=== PATIENT | male | born 1990 | race African-American/Black ===

== ENCOUNTER 2016-09-30 23:57 | Emergency (ER) | payer MEDICAID, OTHER ==
[~2016-09-30] VITALS: Ht 172.7 cm; Wt 72.7 kg
[~2016-09-30 23:57] MED LIST: NOCURR
[2016-10-01 02:39] VITALS: BP 127/81
== END 2016-10-01 02:58 | disposition home or self-care (01) ==
LOC: EMS 23:58
DX: S30.812A Abrasion of penis, initial encounter (principal); L30.9 Dermatitis, unspecified; F17.210 Nicotine dependence, cigarettes, uncomplicated; X58.XXXA Exposure to other specified factors, initial encounter; Y93.89 Activity, other specified; Y92.89 Other specified places as the place of occurrence of the external cause; Y99.9 Unspecified external cause status
CPT/HCPCS: 99282; 99406

== ENCOUNTER 2017-03-17 06:14 | Emergency (ER) | payer MEDICAID ==
[~2017-03-17] VITALS: Ht 177.8 cm; Wt 81.8 kg
[~2017-03-17 06:14] MED LIST changes: +HIV MEDICATION PO; -NOCURR
[2017-03-17] MEDS ORDERED: SODIUM CHLORIDE 0.9% 1,000 ML IV ONE (08:00)
[2017-03-17] MEDS ORDERED: ONDANSETRON HCL 4 MG/2 ML VIAL IVP ONE ×2 (08:00→10:20)
[2017-03-17 08:03] LABS: BASOPHILS # (AUTO) 0.04 K/uL (0.00-0.20); BASOPHILS % (AUTO) 0.3 % (0.0-2.0); EOSINOPHILS # (AUTO) 0.01 K/uL (0.00-0.70); EOSINOPHILS % (AUTO) 0.09 % (1.0-6.0); HEMATOCRIT 50.4 % (41-53); HEMOGLOBIN 17.1 g/dL (13.5-17.5); LYMPHOCYTES # (AUTO) 0.6 K/uL (1.0-4.8); LYMPHOCYTES % (AUTO) 4.5 % (22.0-44.0); MEAN CORPUSCULAR HEMOGLOBIN 31.3 pg (26.0-34.0); MEAN CORPUSCULAR VOLUME 92 fL (80-100); MONOCYTES # (AUTO) 0.9 K/uL (0.1-1.0); MONOCYTES % (AUTO) 7.4 % (2.0-9.0); NEUTROPHILS # (AUTO) 11.1 K/uL (1.8-7.7); PLATELET COUNT (AUTO) 147 K/uL (150-450); RED BLOOD CELL COUNT(AUTO) 5.48 MIL/uL (4.50-5.90); RED CELL DISTRIBUTION WIDTH 13.4 % (11.5-14.5)
[2017-03-17 08:06] LABS: NEUTROPHILS % (AUTO) 87.7 % (40.0-70.0)
[2017-03-17 08:16] LABS: ANION GAP 8 mmol/L (8-16); CALCIUM, TOTAL 9.6 mg/dL (8.8-10.5); CARBON DIOXIDE 29 mmol/L (22-29); CHLORIDE 105 mmol/L (98-107); CREATININE 1.09 mg/dL (0.60-1.30); GLOMERULAR FILTR. RATE CALC > 60 mL/min (>60); GLUCOSE,RANDOM 106 mg/dL (70-110); POTASSIUM 3.6 mmol/L (3.5-5.1); SODIUM SERUM 142 mmol/L (136-145); UREA NITROGEN, BLOOD 17 mg/dL (7-18)
[2017-03-17 08:18] LABS: ALANINE AMINOTRANSFERASE 33 U/L (12-78); ALBUMIN 4.5 g/dL (3.4-5.0); ALKALINE PHOSPHATASE 50 U/L (46-116); ASPARTATE AMINOTRANSFERASE 18 U/L (15-37); BILIRUBIN,TOTAL 0.6 mg/dL (0.1-1.0); LIPASE 193 U/L (73-393); TOTAL PROTEIN, SERUM 8.6 g/dL (6.4-8.2)
[2017-03-17] MEDS ORDERED: IOVERSOL 350 MG/ML 100 ML VIAL ONE (10:12)
[2017-03-17] MEDS ORDERED: KETOROLAC TROMETHAMINE 30 MG/ML VIAL IVP ONE (10:15)
[2017-03-17 11:12] VITALS: BP 106/55
== END 2017-03-17 11:56 | disposition home or self-care (01) ==
LOC: EMS 06:15
DX: K52.9 Noninfective gastroenteritis and colitis, unspecified (principal); F17.210 Nicotine dependence, cigarettes, uncomplicated
CPT/HCPCS: 36415; 74177; 80053; 83690; 85025; 96361; 96374; 96375; 96376; 99285; J1885; J2405; J7030; Q9967

== ENCOUNTER 2017-05-11 13:04 | Inpatient (IN) | payer MEDICAID ==
[~2017-05-11] VITALS: Ht 172.7 cm; Wt 86.0 kg
[2017-05-11] MEDS ORDERED: EMTR1TAB15 PO (13:28)
[2017-05-11] MEDS ORDERED: DARU600T PO (13:29)
[2017-05-11] MEDS ORDERED: SODIUM CHLORIDE 0.9% 1,000 ML IV ONE ×4 (14:30→19:45)
[2017-05-11] MEDS ORDERED: ONDANSETRON HCL 4 MG/2 ML VIAL IVP ONE ×2 (14:30→17:45)
[2017-05-11] MEDS ORDERED: HYDROmorphone 2 MG/ML SYRINGE IVP ONE ×2 (14:45→17:45)
[2017-05-11] MEDS ORDERED: BARIUM SULFATE 0.1% SUSPENSION 450 ML BOTTLE PO ONE (15:20)
[2017-05-11 15:35] LABS: BASOPHILS % (AUTO) 0.1 % (0.0-2.0); EOSINOPHILS % (AUTO) 0 % (1.0-6.0); HEMOGLOBIN 16.6 g/dL (13.5-17.5); LYMPHOCYTES # (AUTO) 0.5 K/uL (1.0-4.8); LYMPHOCYTES % (AUTO) 2.5 % (22.0-44.0); MEAN CORPUSCULAR HGB CONC 34.6 G/dL (31.0-37.0); MEAN CORPUSCULAR VOLUME 90 fL (80-100); MONOCYTES # (AUTO) 1.2 K/uL (0.1-1.0); MONOCYTES % (AUTO) 5.7 % (2.0-9.0); NEUTROPHILS # (AUTO) 19.5 K/uL (1.8-7.7); PLATELET COUNT (AUTO) 186 K/uL (150-450); RED BLOOD CELL COUNT(AUTO) 5.36 MIL/uL (4.50-5.90); RED CELL DISTRIBUTION WIDTH 13.1 % (11.5-14.5)
[2017-05-11 15:38] LABS: NEUTROPHILS % (AUTO) 91.7 % (40.0-70.0)
[2017-05-11 15:59] LABS: ALANINE AMINOTRANSFERASE 28 U/L (12-78); ALBUMIN 4.3 g/dL (3.4-5.0); ALKALINE PHOSPHATASE 48 U/L (46-116); ANION GAP 15 mmol/L (8-16); ASPARTATE AMINOTRANSFERASE 16 U/L (15-37); BILIRUBIN,TOTAL 0.5 mg/dL (0.1-1.0); CALCIUM, TOTAL 9.4 mg/dL (8.8-10.5); CARBON DIOXIDE 21 mmol/L (22-29); CHLORIDE 104 mmol/L (98-107); CREATININE 1.24 mg/dL (0.60-1.30); GLOMERULAR FILTR. RATE CALC > 60 mL/min (>60); GLUCOSE,RANDOM 133 mg/dL (70-110); LIPASE 105 U/L (73-393); SODIUM SERUM 140 mmol/L (136-145); TOTAL PROTEIN, SERUM 8.1 g/dL (6.4-8.2); UREA NITROGEN, BLOOD 16 mg/dL (7-18)
[2017-05-11 16:09] LABS: POTASSIUM 2.9 mmol/L (3.5-5.1)
[2017-05-11] MEDS ORDERED: POTASSIUM CHLORIDE 20 MEQ ER TABLET PO ONE (16:15)
[2017-05-11 16:37] LABS: LACTIC ACID 4.7 mmol/L (0.4-2.0)
[2017-05-11] MEDS ORDERED: IOVERSOL 320 MG/ML 100 ML VIAL ONE (16:43)
[2017-05-11] MEDS ORDERED: SODIUM CHLORIDE 0.9% 2,000 ML IV ONE (16:45)
[2017-05-11 17:46] LABS: APPEARANCE,URINE CLEAR (CLEAR); BILIRUBIN,URINE NEGATIVE (NEGATIVE); GLUCOSE, URINE (UA) 100 mg/dL (NEGATIVE); KETONES,URINE 40 mg/dL (NEGATIVE); LEUKOCYTE ESTERASE ,URINE NEGATIVE (NEGATIVE); NITRATE,URINE NEGATIVE (NEGATIVE); OCCULT BLOOD,URINE SMALL (NEGATIVE); PH,URINE 7.5 (5.0-8.0); PROTEIN,URINE SEE CONFIRM (NEGATIVE); UROBILINOGEN,URINE 0.2 mg/dL (<=1.0)
[2017-05-11 17:52] LABS: AMPHET/METH SCREEN,URINE NEGATIVE (NEGATIVE); BARBITURATE SCREEN, URINE NEGATIVE (NEGATIVE); BENZODIAZEPINES SCREEN,URINE NEGATIVE (NEGATIVE); CANNABINOID SCREEN,URINE POSITIVE (NEGATIVE); COCAINE SCREEN,URINE NEGATIVE (NEGATIVE); METHADONE SCREEN, URINE NEGATIVE (NEGATIVE); OPIATE SCREEN,URINE POSITIVE (NEGATIVE)
[2017-05-11 18:00] LABS: PHENCYCLIDINE SCREEN,URINE NEGATIVE (NEGATIVE)
[2017-05-11] MEDS ORDERED: MetroNIDAZOLE 500 MG/NACL 100 ML IV ONE (18:00)
[2017-05-11] MEDS ORDERED: CIPROFLOXACIN 400 MG/D5% WATER 200 ML IV ONE (18:00)
[2017-05-11 19:00] LABS: SULFOSALICYLIC ACID,URINE 1+ (Negative)
[2017-05-11 19:03] LABS: BACTERIA,URINE Few /HPF (None Seen)
[2017-05-11 19:04] LABS: MUCUS,URINE Many LPF (None Seen); SQUAMOUS EPITHELIAL CELL,UR Few /LPF (None Seen)
[2017-05-11] MEDS ORDERED: ACETAMINOPHEN 325 MG TABLET PO PRN (19:45)
[2017-05-11] MEDS ORDERED: 0.9% SODIUM CHLORIDE 10 ML SYRINGE IVP PRN (19:45)
[2017-05-11] MEDS ORDERED: ONDANSETRON HCL 4 MG/2 ML VIAL IVP PRN ×2 (19:45→23:45)
[2017-05-11] MEDS ORDERED: HYDROmorphone 2 MG/ML SYRINGE IVP PRN (19:45)
[2017-05-11 20:29] VITALS: BP 134/84
[2017-05-11] MEDS ORDERED: MORPHINE SULFATE 4 MG/ML SYRINGE IVP PRN (22:15)
[2017-05-11] MEDS ORDERED: ZOLPIDEM TARTRATE 5 MG TABLET PO PRN (23:45)
[2017-05-11] MEDS ORDERED: MVI, ADULT NO.1 WITH VIT K 10 ML in DEXTROSE 5%-0.9% SODIUM CHL 1,000 ML IV SCH ×2 (23:45)
[2017-05-12] VITALS (7 sets, daily range): BP systolic 125–131; BP diastolic 62–88
[2017-05-12 00:05] LABS: CREATINE KINASE, TOTAL 341 U/L (39-308)
[2017-05-12 00:37] LABS: CREATINE KINASE MB 0.8 ng/mL (0-5)
[2017-05-12] MEDS: MetroNIDAZOLE 500 MG/NACL 100 ML IV SCH ×4 (00:47→23:56)
[2017-05-12] MEDS: MORPHINE SULFATE 4 MG/ML SYRINGE IVP PRN ×6 (02:12→23:56)
[2017-05-12] MEDS: CIPROFLOXACIN 400 MG/D5% WATER 200 ML IV SCH (02:13)
[2017-05-12 05:36] LABS: BASOPHILS % (AUTO) 0.4 % (0.0-2.0); EOSINOPHILS % (AUTO) 0.1 % (1.0-6.0); HEMATOCRIT 39.9 % (41-53); HEMOGLOBIN 14.2 g/dL (13.5-17.5); LYMPHOCYTES # (AUTO) 1.9 K/uL (1.0-4.8); LYMPHOCYTES % (AUTO) 22.6 % (22.0-44.0); MEAN CORPUSCULAR HGB CONC 35.6 G/dL (31.0-37.0); MEAN CORPUSCULAR VOLUME 90 fL (80-100); MONOCYTES # (AUTO) 0.9 K/uL (0.1-1.0); MONOCYTES % (AUTO) 9.8 % (2.0-9.0); NEUTROPHILS # (AUTO) 5.8 K/uL (1.8-7.7); NEUTROPHILS % (AUTO) 67.1 % (40.0-70.0); RED BLOOD CELL COUNT(AUTO) 4.44 MIL/uL (4.50-5.90); RED CELL DISTRIBUTION WIDTH 12.9 % (11.5-14.5)
[2017-05-12 05:47] LABS: PLATELET COUNT (AUTO) 138 K/uL (150-450)
[2017-05-12 05:54] LABS: LACTIC ACID 0.7 mmol/L (0.4-2.0)
[2017-05-12 06:08] LABS: ANION GAP 7 mmol/L (8-16); CARBON DIOXIDE 26 mmol/L (22-29); CHLORIDE 107 mmol/L (98-107); CREATINE KINASE MB 1.8 ng/mL (0-5); CREATINE KINASE, TOTAL 970 U/L (39-308); CREATININE 0.93 mg/dL (0.60-1.30); GLOMERULAR FILTR. RATE CALC > 60 mL/min (>60); GLUCOSE,RANDOM 113 mg/dL (70-110); POTASSIUM 3.7 mmol/L (3.5-5.1); SODIUM SERUM 140 mmol/L (136-145); UREA NITROGEN, BLOOD 6 mg/dL (7-18)
[2017-05-12] MEDS: EMTRICITABINE/TENOFOVIR 200-300 MG TABLET PO SCH (07:41)
[2017-05-12] MEDS: DARUNAVIR ETHANOLATE 600 MG TABLET PO SCH ×2 (07:41→17:52)
[2017-05-12] MEDS ORDERED: MAGNESIUM SULFATE 2 GM in DEXTROSE 5%-WATER 50 ML IV PRN (10:15)
[2017-05-12] MEDS ORDERED: MAGNESIUM SULFATE 4 GM/WATER 100 ML IV PRN (10:15)
[2017-05-12] MEDS: MAGNESIUM OXIDE 400 MG TABLET PO PRN ×3 (10:27→17:51)
[2017-05-12 11:37] LABS: ALBUMIN 3.4 g/dL (3.4-5.0)
[2017-05-12] MEDS ORDERED: SODIUM CHLORIDE 0.9% 250 ML IV ONE (15:05)
[2017-05-13] MEDS: CIPROFLOXACIN 400 MG/D5% WATER 200 ML IV SCH (01:55)
[2017-05-13] MEDS: MORPHINE SULFATE 4 MG/ML SYRINGE IVP PRN ×5 (04:45→21:44)
[2017-05-13 04:52] VITALS: BP 134/79
[2017-05-13 06:15] LABS: BASOPHILS % (AUTO) 0.2 % (0.0-2.0); EOSINOPHILS % (AUTO) 0.3 % (1.0-6.0); HEMATOCRIT 41.9 % (41-53); HEMOGLOBIN 15.4 g/dL (13.5-17.5); LYMPHOCYTES # (AUTO) 1.9 K/uL (1.0-4.8); MEAN CORPUSCULAR HEMOGLOBIN 32.5 pg (26.0-34.0); MEAN CORPUSCULAR HGB CONC 36.7 G/dL (31.0-37.0); MEAN CORPUSCULAR VOLUME 89 fL (80-100); MONOCYTES # (AUTO) 0.8 K/uL (0.1-1.0); MONOCYTES % (AUTO) 10.7 % (2.0-9.0); NEUTROPHILS # (AUTO) 4.9 K/uL (1.8-7.7); NEUTROPHILS % (AUTO) 63.8 % (40.0-70.0); PLATELET COUNT (AUTO) 149 K/uL (150-450); RED BLOOD CELL COUNT(AUTO) 4.73 MIL/uL (4.50-5.90); RED CELL DISTRIBUTION WIDTH 12.8 % (11.5-14.5)
[2017-05-13 06:43] LABS: ANION GAP 4 mmol/L (8-16); CALCIUM, TOTAL 8.7 mg/dL (8.8-10.5); CARBON DIOXIDE 32 mmol/L (22-29); CHLORIDE 103 mmol/L (98-107); CREATININE 1.02 mg/dL (0.60-1.30); GLOMERULAR FILTR. RATE CALC > 60 mL/min (>60); GLUCOSE,RANDOM 83 mg/dL (70-110); POTASSIUM 3.5 mmol/L (3.5-5.1); SODIUM SERUM 139 mmol/L (136-145); UREA NITROGEN, BLOOD 6 mg/dL (7-18)
[2017-05-13] MEDS: EMTRICITABINE/TENOFOVIR 200-300 MG TABLET PO SCH (07:46)
[2017-05-13] MEDS: MetroNIDAZOLE 500 MG/NACL 100 ML IV SCH ×2 (07:46→17:25)
[2017-05-13] MEDS: DARUNAVIR ETHANOLATE 600 MG TABLET PO SCH ×2 (07:46→17:52)
[2017-05-13] MEDS ORDERED: SODIUM CHLORIDE 0.9% 500 ML IV ONE (07:50)
[2017-05-13 08:06] VITALS: BP 129/84
[2017-05-13] MEDS: MAGNESIUM OXIDE 400 MG TABLET PO PRN ×3 (10:15→20:06)
[2017-05-13 11:45] VITALS: BP 132/77
[2017-05-13 15:48] VITALS: BP 120/69
[2017-05-13 20:00] VITALS: BP 127/80
[2017-05-14] VITALS: BP 133/79
[2017-05-14] MEDS: MetroNIDAZOLE 500 MG/NACL 100 ML IV SCH ×2 (00:23→08:37)
[2017-05-14] MEDS: MORPHINE SULFATE 4 MG/ML SYRINGE IVP PRN (01:34)
[2017-05-14] MEDS: CIPROFLOXACIN 400 MG/D5% WATER 200 ML IV SCH (01:37)
[2017-05-14 04:00] VITALS: BP 139/57
[2017-05-14 07:29] VITALS: BP 142/75
[2017-05-14] MEDS: EMTRICITABINE/TENOFOVIR 200-300 MG TABLET PO SCH (08:37)
[2017-05-14] MEDS: DARUNAVIR ETHANOLATE 600 MG TABLET PO SCH (08:38)
[2017-05-14] MEDS ORDERED: CIP250 PO (09:20)
[2017-05-14] MEDS ORDERED: METR250 PO (09:20)
== END 2017-05-14 13:30 | disposition home or self-care (01) | DRG 720 ==
LOC: EMS 13:07 → 4E 18:39 → 6N 05-12 15:01
PROVIDERS: ADMIT Internal Medicine; ATTEND Internal Medicine
DX: A41.9 Sepsis, unspecified organism (principal); F17.200 Nicotine dependence, unspecified, uncomplicated; K52.9 Noninfective gastroenteritis and colitis, unspecified; M54.9 Dorsalgia, unspecified
CPT/HCPCS: 74177; 83605; 83735; 84145; 87040; 99285; 99406; J0744; J1170; J2270; J2405; J3490; J7030; J7040; J7042; J7050

== ENCOUNTER 2017-08-25 02:22 | Emergency (ER) | payer MEDICAID ==
[~2017-08-25] VITALS: Ht 177.8 cm; Wt 81.8 kg
[~2017-08-25 02:22] MED LIST changes: +CIP250 PO; +DARU600T PO; +EMTR1TAB15 PO; -HIV MEDICATION PO; +METR250 PO
[2017-08-25] MEDS ORDERED: LIDOCAINE HCL/PF 1% 2 ML VIAL IM ONE (03:15)
[2017-08-25] MEDS ORDERED: CefTRIAXone SODIUM 1 GM/VIAL IM ONE (03:15)
[2017-08-25] MEDS ORDERED: AZITHROMYCIN 250 MG TABLET PO ONE (03:15)
[2017-08-25 04:09] LABS: APPEARANCE,URINE CLEAR (CLEAR); BILIRUBIN,URINE NEGATIVE (NEGATIVE); GLUCOSE, URINE (UA) NEGATIVE (NEGATIVE); KETONES,URINE NEGATIVE (NEGATIVE); LEUKOCYTE ESTERASE ,URINE NEGATIVE (NEGATIVE); NITRATE,URINE NEGATIVE (NEGATIVE); OCCULT BLOOD,URINE NEGATIVE (NEGATIVE); PROTEIN,URINE NEGATIVE (NEGATIVE); UROBILINOGEN,URINE 0.2 mg/dL (<=1.0)
[2017-08-25 04:21] VITALS: BP 124/74
== END 2017-08-25 05:03 | disposition home or self-care (01) ==
LOC: EMS 02:23
DX: S30.812A Abrasion of penis, initial encounter (principal); A64 Unspecified sexually transmitted disease; N48.89 Other specified disorders of penis; X58.XXXA Exposure to other specified factors, initial encounter; Y93.89 Activity, other specified; Y92.89 Other specified places as the place of occurrence of the external cause; Y99.8 Other external cause status
CPT/HCPCS: 81003; 87491; 87591; 96372; 99284; J0696; J3490

== ENCOUNTER 2019-01-30 14:37 | Emergency (ER) | payer MEDICAID ==
[~2019-01-30] VITALS: Ht 175.3 cm; Wt 81.8 kg
[~2019-01-30 14:37] MED LIST changes: -CIP250 PO; -METR250 PO
[2019-01-30] MEDS ORDERED: KETOROLAC TROMETHAMINE 30 MG/ML VIAL IVP ONE (15:00)
[2019-01-30] MEDS ORDERED: MORPHINE SULFATE 4 MG/ML SYRINGE IVP ONE (15:15)
[2019-01-30 15:53] LABS: BASOPHILS % (AUTO) 0.2 % (0.0-2.0); EOSINOPHILS % (AUTO) 0.1 % (1.0-6.0); HEMATOCRIT 48.5 % (41-53); HEMOGLOBIN 16.8 g/dL (13.5-17.5); LYMPHOCYTES # (AUTO) 1.6 K/uL (1.0-4.8); LYMPHOCYTES % (AUTO) 13.2 % (22.0-44.0); MEAN CORPUSCULAR HEMOGLOBIN 31.9 pg (26.0-34.0); MEAN CORPUSCULAR HGB CONC 34.5 G/dL (31.0-37.0); MEAN CORPUSCULAR VOLUME 92 fL (80-100); MONOCYTES # (AUTO) 1.2 K/uL (0.1-1.0); MONOCYTES % (AUTO) 9.5 % (2.0-9.0); NEUTROPHILS # (AUTO) 9.4 K/uL (1.8-7.7); PLATELET COUNT (AUTO) 180 K/uL (150-450); RED BLOOD CELL COUNT(AUTO) 5.26 MIL/uL (4.50-5.90); RED CELL DISTRIBUTION WIDTH 13.3 % (11.5-14.5)
[2019-01-30 16:09] LABS: ANION GAP 13 mmol/L (8-16); CARBON DIOXIDE 23 mmol/L (22-29); CHLORIDE 106 mmol/L (98-107); CREATININE 1.24 mg/dL (0.60-1.30); GLOMERULAR FILTR. RATE CALC > 60 mL/min (>60); GLUCOSE,RANDOM 115 mg/dL (70-110); POTASSIUM 3.2 mmol/L (3.5-5.1); SODIUM SERUM 142 mmol/L (136-145); UREA NITROGEN, BLOOD 13 mg/dL (7-18)
[2019-01-30 16:11] LABS: INR 1.1 (0.9-1.1); PROTHROMBIN TIME 10.9 SEC (9.4-11.6)
[2019-01-30 16:14] LABS: ALANINE AMINOTRANSFERASE 208 U/L (12-78); ALBUMIN 4.4 g/dL (3.4-5.0); ALKALINE PHOSPHATASE 46 U/L (46-116); ASPARTATE AMINOTRANSFERASE 55 U/L (15-37); BILIRUBIN,TOTAL 0.5 mg/dL (0.1-1.0); LIPASE 167 U/L (73-393); TOTAL PROTEIN, SERUM 8.7 g/dL (6.4-8.2)
[2019-01-30] MEDS ORDERED: HALOPERIDOL LACTATE 5 MG/ML VIAL IVP ONE (16:15)
[2019-01-30] MEDS ORDERED: FAMOTIDINE 10 MG/ML 2 ML VIAL IVP ONE (16:15)
[2019-01-30] MEDS ORDERED: DICYCLOMINE HCL 20 MG TABLET PO ONE (16:15)
[2019-01-30] MEDS ORDERED: HYDROmorphone 2 MG/ML SYRINGE IVP ONE (16:30)
[2019-01-30] MEDS ORDERED: IOVERSOL 320 MG/ML 100 ML VIAL ONE (16:41)
[2019-01-30] MEDS ORDERED: SODIUM CHLORIDE 0.9% 100 ML ONE (16:41)
[2019-01-30 18:00] VITALS: BP 137/76
[2019-01-30 18:28] LABS: APPEARANCE,URINE CLEAR (CLEAR); BILIRUBIN,URINE NEGATIVE (NEGATIVE); GLUCOSE, URINE (UA) NEGATIVE (NEGATIVE); KETONES,URINE 15 mg/dL (NEGATIVE); LEUKOCYTE ESTERASE ,URINE NEGATIVE (NEGATIVE); NITRATE,URINE NEGATIVE (NEGATIVE); OCCULT BLOOD,URINE NEGATIVE (NEGATIVE); PH,URINE 8.5 (5.0-8.0); PROTEIN,URINE POS 1+ (NEGATIVE)
[2019-01-30 18:52] LABS: BACTERIA,URINE Many /HPF (None Seen); RBC,URINE 0-2 /HPF (0-2); SQUAMOUS EPITHELIAL CELL,UR Few /LPF (None Seen)
== END 2019-01-30 18:55 | disposition home or self-care (01) ==
LOC: EMS 14:38
DX: R10.84 Generalized abdominal pain (principal); R11.2 Nausea with vomiting, unspecified; R19.7 Diarrhea, unspecified; R74.8 Abnormal levels of other serum enzymes
CPT/HCPCS: 36415; 71045; 74177; 80053; 81001; 83690; 85025; 85610; 85730; 87086; 93005; 96374; 96375; 99285; J1170; J1630; J1885; J2270; J3490; J7050; Q9967

== ENCOUNTER 2021-10-15 06:02 | Emergency (ER) | payer MEDICAID ==
[~2021-10-15] VITALS: Ht 175.3 cm; Wt 79.0 kg
[2021-10-15] MEDS ORDERED: ONDANSETRON HCL 4 MG/2 ML VIAL IVP ONE (06:45)
[2021-10-15] MEDS ORDERED: FAMOTIDINE 10 MG/ML 2 ML VIAL IVP ONE (06:45)
[2021-10-15] MEDS ORDERED: SODIUM CHLORIDE 0.9% 1,000 ML IV ONE (06:45)
[2021-10-15 06:48] LABS: ANION GAP 16 mmol/L (8-16); BASOPHILS % (AUTO) 0.4 % (0.0-2.0); CALCIUM, TOTAL 9.8 mg/dL (8.8-10.5); CARBON DIOXIDE 20 mmol/L (22-29); CHLORIDE 100 mmol/L (98-107); CREATININE 1.34 mg/dL (0.60-1.30); EOSINOPHILS % (AUTO) 0.1 % (1.0-6.0); GLUCOSE,RANDOM 130 mg/dL (70-110); HEMATOCRIT 50.4 % (41-53); HEMOGLOBIN 17.7 g/dL (13.5-17.5); LYMPHOCYTES % (AUTO) 14.1 % (22.0-44.0); MEAN CORPUSCULAR HGB CONC 35.1 G/dL (31.0-37.0); MEAN CORPUSCULAR VOLUME 88 fL (80-100); MONOCYTES # (AUTO) 2.3 K/uL (0.1-1.0); MONOCYTES % (AUTO) 16.7 % (2.0-9.0); NEUTROPHILS # (AUTO) 9.5 K/uL (1.8-7.7); NEUTROPHILS % (AUTO) 68.7 % (40.0-70.0); PLATELET COUNT (AUTO) 189 K/uL (150-450); POTASSIUM 3.3 mmol/L (3.5-5.1); RED BLOOD CELL COUNT(AUTO) 5.71 MIL/uL (4.50-5.90); SODIUM SERUM 136 mmol/L (136-145); UREA NITROGEN, BLOOD 7 mg/dL (7-18)
[2021-10-15 06:49] LABS: GLOMERULAR FILTR. RATE CALC > 60 mL/min (>60)
[2021-10-15 07:00] LABS: ALANINE AMINOTRANSFERASE 44 U/L (12-78); ALBUMIN 4.3 g/dL (3.4-5.0); ALKALINE PHOSPHATASE 62 U/L (46-116); ASPARTATE AMINOTRANSFERASE 35 U/L (15-37); BILIRUBIN,TOTAL 0.8 mg/dL (0.1-1.0); LIPASE 76 U/L (73-393); PHOSPHORUS 3.6 mg/dL (2.5-4.9); TOTAL PROTEIN, SERUM 9.1 g/dL (6.4-8.2)
[2021-10-15] MEDS ORDERED: METOCLOPRAMIDE HCL 5 MG/ML 2 ML VIAL IVP ONE (07:00)
[2021-10-15] MEDS ORDERED: DiphenhydrAMINE HCL 50 MG/ML VIAL IVP ONE (07:00)
[2021-10-15 07:02] LABS: COVID AG,FIA SOURCE NASOPHARYNGEAL
[2021-10-15] MEDS ORDERED: MAGNESIUM SULFATE 2 GM/WATER 50 ML IV ONE (07:30)
[2021-10-15] MEDS ORDERED: MORPHINE SULFATE 2 MG/ML SYRINGE IVP ONE (08:00)
[2021-10-15] MEDS ORDERED: KETOROLAC TROMETHAMINE 30 MG/ML VIAL IVP ONE (08:00)
[2021-10-15] MEDS ORDERED: IOHEXOL 350 MG/ML 100 ML VIAL ONE (08:14)
[2021-10-15] MEDS ORDERED: SODIUM CHLORIDE 0.9% 100 ML ONE (08:14)
[2021-10-15] MEDS ORDERED: HALOPERIDOL LACTATE 5 MG/ML VIAL IVP ONE (09:15)
[2021-10-15 10:49] VITALS: BP 130/70
[2021-10-15] MEDS ORDERED: ONDA-104 PO (11:40)
== END 2021-10-15 11:57 | disposition home or self-care (01) ==
LOC: EMS 06:03
DX: R11.10 Vomiting, unspecified (principal); F12.90 Cannabis use, unspecified, uncomplicated; Z79.899 Other long term (current) drug therapy; Z20.822 Contact with and (suspected) exposure to COVID-19
CPT/HCPCS: 99285; 74177; 96365; 96361; 87426; 80053; 83690; 83735; 84100; 85025; 36415; 93005; 96375; J1200; J3490; J1630; J1885; J2765; J2270; J2405; Q9967; J7030; J7050; J3475

== ENCOUNTER 2021-12-02 10:12 | Emergency (ER) | payer MEDICAID ==
[~2021-12-02] VITALS: Ht 175.3 cm; Wt 72.7 kg
[~2021-12-02 10:12] MED LIST changes: +ONDA-104 PO
[2021-12-02] MEDS ORDERED: ONDANSETRON HCL 4 MG/2 ML VIAL IVP ONE (10:45)
[2021-12-02] MEDS ORDERED: FAMOTIDINE 10 MG/ML 2 ML VIAL IVP ONE (10:45)
[2021-12-02] MEDS ORDERED: SODIUM CHLORIDE 0.9% 1,000 ML IV ONE (10:45)
[2021-12-02 11:14] LABS: BASOPHILS % (AUTO) 0.4 % (0.0-2.0); EOSINOPHILS % (AUTO) 0.1 % (1.0-6.0); HEMATOCRIT 54.3 % (41-53); HEMOGLOBIN 18.5 g/dL (13.5-17.5); LYMPHOCYTES # (AUTO) 1.8 K/uL (1.0-4.8); LYMPHOCYTES % (AUTO) 14.4 % (22.0-44.0); MEAN CORPUSCULAR VOLUME 91 fL (80-100); MONOCYTES # (AUTO) 1.2 K/uL (0.1-1.0); MONOCYTES % (AUTO) 9.8 % (2.0-9.0); NEUTROPHILS # (AUTO) 9.3 K/uL (1.8-7.7); NEUTROPHILS % (AUTO) 75.3 % (40.0-70.0); PLATELET COUNT (AUTO) 214 K/uL (150-450); RED BLOOD CELL COUNT(AUTO) 5.96 MIL/uL (4.50-5.90); RED CELL DISTRIBUTION WIDTH 13.9 % (11.5-14.5)
[2021-12-02 11:30] VITALS: BP 155/100
[2021-12-02 11:30] LABS: COVID AG,FIA SOURCE NASOPHARYNGEAL
== END 2021-12-02 11:45 | disposition left against medical advice (07) ==
LOC: EMS 10:20
DX: Z53.21 Procedure and treatment not carried out due to patient leaving prior to being seen by health care provider (principal)
CPT/HCPCS: 96374; 96361; 96375; 87426; 85025; 36415; J3490; J2405; J7030

== ENCOUNTER 2022-03-10 01:24 | Emergency (ER) | payer MEDICAID ==
[~2022-03-10] VITALS: Ht 175.3 cm; Wt 75.0 kg
[~2022-03-10 01:24] MED LIST changes: -ONDA-104 PO
[2022-03-10 01:30] VITALS: BP 129/89
[2022-03-10] MEDS: IBUPROFEN 600 MG TABLET PO ONE (02:23)
[2022-03-10] MEDS: ACETAMINOPHEN/CODEINE 300-30 MG TABLET PO ONE (02:23)
[2022-03-10] MEDS ORDERED: IBUP-1554 PO (02:59)
[2022-03-10] MEDS ORDERED: AMOX1TAB16 PO (02:59)
== END 2022-03-10 03:29 | disposition home or self-care (01) ==
LOC: EMS 01:25
DX: S60.222A Contusion of left hand, initial encounter (principal); F12.90 Cannabis use, unspecified, uncomplicated; W51.XXXA Accidental striking against or bumped into by another person, initial encounter; Y93.89 Activity, other specified; Y92.89 Other specified places as the place of occurrence of the external cause; Y99.8 Other external cause status
CPT/HCPCS: 99283

== ENCOUNTER 2022-08-02 16:51 | Emergency (ER) | payer MEDICAID, OTHER ==
[~2022-08-02] VITALS: Ht 175.3 cm; Wt 77.3 kg
[~2022-08-02 16:51] MED LIST changes: +AMOX1TAB16 PO; +IBUP-1554 PO
[2022-08-02] MEDS ORDERED: IBUP-1492 PO (18:26)
[2022-08-02] MEDS ORDERED: CYCL-448 PO (18:26)
[2022-08-02 18:46] VITALS: BP 140/70
== END 2022-08-02 18:48 | disposition home or self-care (01) ==
LOC: EMS 17:10
DX: M54.50 Low back pain, unspecified (principal); M54.6 Pain in thoracic spine; F12.90 Cannabis use, unspecified, uncomplicated; V98.8XXA Other specified transport accidents, initial encounter; Y93.89 Activity, other specified; Y92.89 Other specified places as the place of occurrence of the external cause; Y99.8 Other external cause status
CPT/HCPCS: 99283; Z7502

== ENCOUNTER 2022-08-29 13:06 | Emergency (ER) | payer OTHER ==
[~2022-08-29] VITALS: Ht 175.3 cm; Wt 75.0 kg
[~2022-08-29 13:06] MED LIST changes: +CYCL-448 PO; +IBUP-1492 PO
[2022-08-29 13:11] VITALS: BP 112/67
== END 2022-08-29 14:23 | disposition left against medical advice (07) ==
LOC: EMS 13:18
DX: N48.5 Ulcer of penis (principal); Z53.21 Procedure and treatment not carried out due to patient leaving prior to being seen by health care provider
CPT/HCPCS: 99281; Z7502

== ENCOUNTER 2022-08-29 17:12 | Emergency (ER) | payer OTHER ==
[~2022-08-29] VITALS: Ht 175.3 cm; Wt 75.0 kg
[2022-08-29 17:39] VITALS: BP 120/68
== END 2022-08-29 20:15 | disposition left against medical advice (07) ==
LOC: EMS 17:14
DX: N48.5 Ulcer of penis (principal); Z53.21 Procedure and treatment not carried out due to patient leaving prior to being seen by health care provider
CPT/HCPCS: 99281; Z7502

== ENCOUNTER 2023-04-21 10:15 | Emergency (ER) | payer OTHER ==
[~2023-04-21] VITALS: Ht 172.7 cm; Wt 79.5 kg
[2023-04-21 10:21] VITALS: BP 117/62; PULSE 64; RESP 18; TEMP 98
[2023-04-21] MEDS ORDERED: DOLU1TAB PO (10:22)
== END 2023-04-21 11:17 | disposition left against medical advice (07) ==
LOC: EMS 10:22
DX: M54.50 Low back pain, unspecified (principal); M54.2 Cervicalgia; Z53.21 Procedure and treatment not carried out due to patient leaving prior to being seen by health care provider
CPT/HCPCS: 99281; Z7502

== ENCOUNTER 2023-12-10 01:55 | Emergency (ER) | payer OTHER ==
[~2023-12-10] VITALS: Ht 175.3 cm; Wt 82.0 kg
[~2023-12-10 01:55] MED LIST changes: -AMOX1TAB16 PO; -CYCL-448 PO; -DARU600T PO; +DOLU1TAB PO; -EMTR1TAB15 PO; -IBUP-1492 PO; -IBUP-1554 PO
[2023-12-10 02:10] VITALS: BP 121/76; PULSE 81; RESP 20; TEMP 101; O2SAT 97
== END 2023-12-10 02:45 | disposition left against medical advice (07) ==
LOC: EMS 01:55
DX: R11.10 Vomiting, unspecified (principal); R42 Dizziness and giddiness; Z53.21 Procedure and treatment not carried out due to patient leaving prior to being seen by health care provider

== ENCOUNTER 2024-05-12 23:38 | Emergency (ER) | payer MEDICAID, OTHER | END 2024-05-13 00:29 | disposition left against medical advice (07) | LOC: EMS 23:38 | DX: Z53.21 Procedure and treatment not carried out due to patient leaving prior to being seen by health care provider (principal) ==